=== PATIENT | female | born 1980 | race Caucasian/White ===

== ENCOUNTER 2016-12-20 15:04 | Emergency (ER) | payer OTHER ==
[2016-12-20 15:46] VITALS: RESP 18; TEMP 98.8; O2SAT 99; BMI 26.1
[2016-12-20] MEDS ORDERED: DiphenhydrAMINE 50 mg/ml Inj IVP STA (16:08)
[2016-12-20] MEDS ORDERED: Sodium Chloride 0.9% 1,000 ML IV STA (16:08)
--- NOTE | 2016-12-20 16:12 | ED PDOC ---
Arrival/HPI - General Chief Complaint: Eye Problem Time Seen by Provider: 12/20/16 15:30 Historian: Patient - History of Present Illness Narrative History of Present Illness (Text): 12/20/16 16:09 36 y/o female, no pmh, nkda, c/o lt. 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 Pt. stated that she had headache last night, unilateraly and throbbing sensation, crying and straining in pain, feels better later and went to sleep, woke up this morning left eye with the blood, no change in vision, headache decreased but started again, no dizziness, no change in vision, no palpitation, no neck stiffness, no numbness or tingling, no eye pain, no other medical or psychological complaints. Past Medical History - Provider Review Nursing Documentation Reviewed: Yes - Cardiac Hx Cardiac Disorders: No - Pulmonary Hx Respiratory Disorders: Yes Hx Asthma: Yes - Psychiatric Hx Substance Use: No Family/Social History - Physician Review Nursing Documentation Reviewed: Yes Family/Social History: Unknown Family HX Smoking Status: Current Some Days Smoker Hx Alcohol Use: No Hx Substance Use: No Allergies/Home Meds Allergies/Adverse Reactions: Allergies No Known Allergies Allergy (Verified 12/20/16 15:46) Home Medications: Home Meds Medication Instructions Recorded Confirmed Albuterol/Ipratropium [Duoneb 3 3 ml IH PRN PRN 03/21/16 12/20/16 MG/3 Ml-0.5 MG/3 Ml 3 Ml] Review of Systems - Review of Systems Constitutional: absent: Fatigue, Fevers Eyes: absent: Vision Changes ENT: absent: Hearing Changes Respiratory: absent: Cough, Sputum Cardiovascular: absent: Chest Pain Gastrointestinal: absent: Abdominal Pain, Nausea, Vomiting Musculoskeletal: absent: Arthralgias Skin: absent: Rash Neurological: Headache. absent: Dizziness, Focal Weakness, Gait Changes, Speech Changes, Facial Droop, Disequilibrium, Seizure Physical Exam Vital Signs Reviewed: Yes Vital Signs Temp Pulse Resp BP Pulse Ox 12/20/16 17:16 68 18 115/75 99 12/20/16 16:00 71 18 113/79 99 12/20/16 15:42 98.8 F 74 18 111/77 99 Temperature: Afebrile Blood Pressure: Normal Pulse: Regular Respiratory Rate: Normal Appearance: Positive for: Well-Appearing, Non-Toxic, Comfortable Pain Distress: Moderate Mental Status: Positive for: Alert and Oriented X 3 - Systems Exam Head: Present: Atraumatic, Normocephalic, Other (no temporal artery tenderness) Pupils: Present: PERRL Extroacular Muscles: Present: EOMI Conjunctiva: Present: Other (bilateral eyes: without correction bilateral vision 20/40, Lt. lateral subconjunctival hemorrage noted with no nystagmus, no painful movement of the eyes, bilatearal eyes examined with the opthalmoscope which there is papilledema.) Mouth: Present: Moist Mucous Membranes Neck: Present: Normal Range of Motion Respiratory/Chest: Present: Clear to Auscultation, Good Air Exchange. No: Respiratory Distress, Accessory Muscle Use Cardiovascular: Present: Regular Rate and Rhythm, Normal S1, S2. No: Murmurs Abdomen: Present: Normal Bowel Sounds. No: Tenderness, Distention, Peritoneal Signs Back: Present: Normal Inspection Upper Extremity: Present: Normal Inspection. No: Cyanosis, Edema Lower Extremity: Present: Normal Inspection. No: Edema Neurological: Present: GCS=15, Speech Normal, Motor Func Grossly Intact, Gait Normal, Memory Normal Skin: Present: Warm, Dry, Normal Color. No: Rashes Psychiatric: Present: Alert, Oriented x 3, Normal Insight, Normal Concentration Medical Decision Making ED Course and Treatment: 12/20/16 16:12 -labs -CT head -IVF/reglan/benadryl -observe and reassess 12/20/16 18:37 -Labs are non-significant -CT head show no acute findings. -Physical examination show no acute findings other than lt. subconjunctival hemorrage. -Headache resolved with the IV medication -Pt. is vitally stable, neurologically intact, request to be discharge home. -Clinically the subconjunctival hemorrhage is a result of straining and crying when she was having the headache last night, I will send her to see the neurologist and opthalmologist for follow up. -Discharge home with education on take tylenol for pain as needed, avoid straining or gym/exercise, follow up with your own pmd and neurologist/ opthalmologist within 2 days, return to the ER for any new or worsening signs or symptoms. - Lab Interpretations Lab Results: 12/20/16 16:50 12/20/16 16:50 Lab Results 12/20/16 16:50: WBC 4.1 L, RBC 4.50, Hgb 12.6, Hct 38.6, MCV 85.8, MCH 28.0, MCHC 32.6, RDW 13.0, Plt Count 245, MPV 10.0, Gran % 51.8, Lymph % (Auto) 37.0 H , [place] % (Auto) 7.1 H, Eos % (Auto) 3.6, Baso % (Auto) 0.5, Gran # 2.13, Lymph # 1.5, [place] # 0.3, Eos # 0.2, Baso # 0.02, Sodium 137, Potassium 4.1, Chloride 101, Carbon Dioxide 29, Anion Gap 11, BUN 17, Creatinine 0.7, Est GFR ( Amer) > 60, Est GFR (Non-Af Amer) > 60, Random Glucose 76, Calcium 9.1, Total Bilirubin 0.5, AST 31, ALT 34, Alkaline Phosphatase 46, Total Protein 7.8, Albumin 4.3, Globulin 3.5, Albumin/Globulin Ratio 1.2 I have reviewed the lab results: Yes Interpretation: No clinic. lab abnormalty - RAD Interpretation Radiology Orders: 12/20/16 16:08 HEAD W/O CONTRAST [CT] Stat PROCEDURE: CT HEAD WITHOUT CONTRAST. HISTORY: headache last night, sharp sensation lt. side COMPARISON: None available. TECHNIQUE: Axial computed tomography images were obtained through the head/brain without intravenous contrast. Radiation dose: Total exam DLP = 725.84 MGy-cm. This CT exam was performed using one or more of the following dose reduction techniques: Automated exposure control, adjustment of the mA and/or kV according to patient size, and/or use of iterative reconstruction technique. FINDINGS: HEMORRHAGE: No intracranial hemorrhage. BRAIN: No mass effect or edema. No atrophy or chronic microvascular ischemic changes.Please note that MRI with diffusion imaging is more sensitive in the detection of acute ischemic event. VENTRICLES: No hydrocephalus. CALVARIUM: Unremarkable. PARANASAL SINUSES: Unremarkable as visualized. No significant inflammatory changes. MASTOID AIR CELLS: Unremarkable as visualized. No inflammatory changes. OTHER FINDINGS: None. IMPRESSION: No acute intracranial pathology identified. 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 - Medication Orders Current Medication Orders: Discontinued Medications Diphenhydramine HCl (Benadryl) 25 mg IVP STAT STA Stop: 12/20/16 16:09 Last Admin: 12/20/16 16:38 Dose: 25 MG IVP Administration Document 12/20/16 16:38 RR (Rec: 12/20/16 16:38 RR [id number]) Charges for Administration # of IVP Administrations 1 Sodium Chloride (Sodium Chloride 0.9%) 1,000 mls @ 999 mls/hr IV .Q1H1M STA Stop: 12/20/16 17:08 Last Admin: 12/20/16 16:38 Dose: 999 MLS/HR eMAR Start Stop Document 12/20/16 16:38 RR (Rec: 12/20/16 16:38 RR [id number]) Intravenous Solution Start Date 12/20/16 Start Time 16:38 End Date 12/20/16 End time 17:39 Total Infusion Time 61 Metoclopramide HCl (Reglan) 10 mg IVP STAT STA Stop: 12/20/16 16:09 Last Admin: 12/20/16 16:38 Dose: 10 MG IVP Administration Document 12/20/16 16:38 RR (Rec: 12/20/16 16:38 RR [id number]) Charges for Administration # of IVP Administrations 1 - PA / MANAGER IT TRAINING / Resident Statement MD/DO has reviewed & agrees with the documentation as recorded. Disposition/Present on Arrival - Present on Arrival Any Indicators Present on Arrival: No History of DVT/PE: No History of Uncontrolled Diabetes: No Urinary Catheter: No History of Decub. Ulcer: No History Surgical Site Infection Following: None - Disposition Have Diagnosis and Disposition been Completed?: Yes Diagnosis: Subconjunctival hemorrhage, Headache Disposition: HOME/ ROUTINE Disposition Time: 18:37 Patient Plan: Discharge Condition: IMPROVED Additional Instructions: Discharge home with education on take tylenol for pain as needed, avoid straining or gym/exercise, follow up with your own pmd and neurologist/ opthalmologist within 2 days, return to the ER for any new or worsening signs or symptoms. Referrals: PCP,NO [Primary Care Provider] - Follow up with primary Srinivasa Cook [Staff Provider] - Follow up with primary Sudheer Pina MD [Staff Provider] - Follow up with primary [facility] [Outside] - Follow up with primary Forms: WORK NOTE
[2016-12-20 17:17] VITALS: BP 115/75; PULSE 68
[2016-12-20 17:35] LABS: ADD MANUAL DIFF? NO
[2016-12-20 17:49] LABS: ALB/GLOB RATIO 1.2 (1.1-1.8); ALKALINE PHOSPHATASE 46 U/L (38-133); ALT/SGPT 34 U/L (7-56); AST/SGOT 31 U/L (15-39); BILIRUBIN,TOTAL 0.5 mg/dL (0.2-1.3); BLOOD UREA NITROGEN 17 mg/dL (7-21); CALCIUM 9.1 mg/dL (8.4-10.5); CARBON DIOXIDE 29 mmol/L (21-33); CHLORIDE 101 mmol/L (98-107); GFR AFRICAN-AMERICAN > 60; GLUCOSE,RANDOM 76 mg/dL (70-110); POTASSIUM 4.1 mmol/L (3.6-5.0); SODIUM 137 mmol/L (132-148); TOTAL PROTEIN 7.8 g/dL (5.8-8.3)
[2016-12-20 17:54] LABS: BASO # 0.02 K/mm3 (0.0-2.0); BASO % 0.5 % (0.0-3.0); EOS # 0.2 (0.0-0.7); EOS % 3.6 % (1.5-5.0); GRAN # 2.13 (1.4-6.5); GRAN % 51.8 % (50.0-68.0); HEMATOCRIT 38.6 % (36.0-48.0); LYMPH # 1.5 (1.2-3.4); MEAN CELL VOLUME 85.8 fL (80.0-105.0); MEAN CORPUSCULAR HGB CONC 32.6 g/dl (31.0-37.0); MONO # 0.3 (0.1-0.6); MONO % 7.1 % (1.0-6.0); PLATELET COUNT 245 10^3/uL (120.0-450.0); WHITE BLOOD COUNT 4.1 10^3/ul (4.5-11.0)
--- NOTE | 2016-12-20 18:33 | CT ---
PROCEDURE: CT HEAD WITHOUT CONTRAST. HISTORY: headache last night, sharp sensation lt. side COMPARISON: None available. TECHNIQUE: Axial computed tomography images were obtained through the head/brain without intravenous contrast. Radiation dose: Total exam DLP = 725.84 MGy-cm. This CT exam was performed using one or more of the following dose reduction techniques: Automated exposure control, adjustment of the mA and/or kV according to patient size, and/or use of iterative reconstruction technique. FINDINGS: HEMORRHAGE: No intracranial hemorrhage. BRAIN: No mass effect or edema. No atrophy or chronic microvascular ischemic changes.Please note that MRI with diffusion imaging is more sensitive in the detection of acute ischemic event. VENTRICLES: No hydrocephalus. CALVARIUM: Unremarkable. PARANASAL SINUSES: Unremarkable as visualized. No significant inflammatory changes. MASTOID AIR CELLS: Unremarkable as visualized. No inflammatory changes. OTHER FINDINGS: None. IMPRESSION: No acute intracranial pathology identified.
== END 2016-12-20 18:55 | disposition home or self-care (01) ==
LOC: ED 15:04
DX: H11.32 Conjunctival hemorrhage, left eye (principal); R51 Headache
CPT/HCPCS: 70450; 80053; 85025; 96361; 96374; 96375; 99284; J1200; J2765; J7040